=== PATIENT | female | born 1965 | race Caucasian/White ===

== ENCOUNTER 2021-04-22 08:25 | Observation (INO) | payer OTHER ==
[~2021-04-22] VITALS: Ht 162.6 cm; Wt 42.6 kg
[~2021-04-22 08:25] MED LIST: BACTRIM DS TAB1 EACH PO; BACTROBAN NASAL1 G1; CLEOCIN HCL300 MG PO; FELDENE10 MG PO; KEFLEX CAP 500500 MG PO; NORCO 5-325 TA1 EACH PO
[2021-04-22 09:22] LABS: RED BLOOD COUNT 4.78 M/UL (4.00-5.10); WHITE BLOOD COUNT 6.5 K/UL (4.5-11.0)
[2021-04-22 09:55] LABS: BUN/CREATININE RATIO 12 (0-10)
== END 2021-04-22 17:56 | disposition home or self-care (01) ==
LOC: ER1 08:25 → CDU 10:24 → M/S 14:10
PROVIDERS: Emergency Medicine; ADMIT Internal Medicine
DX: R07.9 Chest pain, unspecified (principal); I10 Essential (primary) hypertension; M79.7 Fibromyalgia; M06.9 Rheumatoid arthritis, unspecified; F17.210 Nicotine dependence, cigarettes, uncomplicated; Z88.7 Allergy status to serum and vaccine
CPT/HCPCS: 36415; 71045; 80053; 82550; 82553; 83874; 84484; 85025; 93005; 99285; G0378